=== PATIENT | female | born 1990 | race African-American/Black ===

== ENCOUNTER 2023-07-22 09:45 | Emergency (ER) | payer OTHER, SELFPAY ==
[2023-07-22 09:58] VITALS: BP 122/87; PULSE 92; RESP 18; TEMP 36.8; O2SAT 100; BMI 21.9
--- NOTE | 2023-07-22 10:12 | ED.FEMALEGU1 ---
HPI - Female Genitourinary General Chief complaint: Urogenital-Female Stated complaint: BLOOD IN URINE Time Seen by Provider: 07/22/23 09:52 Source: patient and friend Mode of arrival: walk-in Limitations: no limitations History of Present Illness HPI Narrative: 33-year-old female presents to the emergency department for vaginal bleeding. This has been going on for a few weeks. She was seen at another hospital a week ago and had extensive testing done including STD test and blood test all of which were negative. She is scheduled for a pelvic ultrasound today. No fever vomiting or diarrhea. Related Data Allergies Allergy/AdvReac Type Severity Reaction Status Date / Time No Known Drug Allergies Allergy Verified 07/22/23 09:58 Review of Systems ROS Narrative A ten point review of systems is negative except as noted above. Exam Narrative Exam Narrative: Nurses note and vital signs reviewed and patient is not hypoxic. General: The patient appears well and in no apparent distress. Patient is resting comfortably on cart. Skin: Warm, dry, no pallor noted. There is no rash noted. Head: Normocephalic, atraumatic Eye: Normal conjunctiva, no drainage Ears, Nose, Mouth, and Throat: oral mucosa is moist. Nares patent. Cardiovascular: Regular Rate and Rhythm Respiratory: Patient is in no distress, no accessory muscle use, lungs are clear to auscultation, no wheezing, rales or rhonchi Back: non-tender GI: Soft and nontender Musculoskeletal: No joint swelling Neurological: A&O, normal speech Psychiatric: Cooperative Constitutional Vital Signs, click to edit/add: Last Vital Signs Temp 98.2 F 07/22/23 09:58 Pulse 92 H 07/22/23 09:58 Resp 18 07/22/23 09:58 BP 122/87 07/22/23 09:58 Pulse Ox 100 07/22/23 09:58 O2 Del Method Room Air 07/22/23 09:58 Course Vital Signs Vital signs: Vital Signs Temperature 98.2 F 07/22/23 09:58 Pulse Rate 92 H 07/22/23 09:58 Respiratory Rate 18 07/22/23 09:58 Blood Pressure 122/87 07/22/23 09:58 Pulse Oximetry 100 07/22/23 09:58 Oxygen Delivery Method Room Air 07/22/23 09:58 Temperature 98.2 F 07/22/23 09:58 Pulse Rate 92 H 07/22/23 09:58 Respiratory Rate 18 07/22/23 09:58 Blood Pressure 122/87 07/22/23 09:58 Pulse Oximetry 100 07/22/23 09:58 Oxygen Delivery Method Room Air 07/22/23 09:58 MDM - Female Genitourinary MDM Narrative Medical decision making narrative: Her workup here is negative. 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 Treatment diagnosis and follow-up were discussed thoroughly. She is not . Differential Diagnosis Differential diagnosis: Likely urinary tract infection and other (Dysfunctional uterine bleeding, uterine fibroid , miscarriage, ectopic) Lab Data Attestation: I reviewed the patient's lab results. Labs: Lab Results 07/22/23 07/22/23 Range/Units 10:05 10:16 WBC 5.3 (4.0-11.0) 10^3/uL RBC 4.25 (4.20-5.40) 10^6/uL Hgb 13.5 (12.0-16.0) g/dL Hct 40.9 (36.0-48.0) % MCV 96.2 (81.0-99.0) fL MCH 31.8 (26.7-34.0) pg MCHC 33.0 (29.9-35.2) g/dL RDW 14.2 (11.0-15.0) % Plt Count 259 (150-450) 10^3/uL MPV 9.6 (9.5-13.5) fL Neut % (Auto) 45.5 (43.0-75.0) % Lymph % (Auto) 47.1 (20.5-60.0) % Ashley % (Auto) 4.0 (1.7-12.0) % Eos % (Auto) 2.8 (0.9-7.0) % Baso % (Auto) 0.4 (0.2-2.0) % Neut # (Auto) 2.4 (1.4-6.5) 10^3/uL Lymph # (Auto) 2.5 (1.2-3.8) 10^3/uL Ashley # (Auto) 0.2 L (0.3-0.8) 10^3/uL Eos # (Auto) 0.2 (0.0-0.7) 10^3/uL Baso # (Auto) 0.0 (0.0-0.1) 10^3/uL Abs Immat Gran (auto) 0.01 (0.00-0.03) 10^3/uL Imm/Tot Granulo (auto) 0.2 (0.0-0.5) % Sodium 139 (136-145) mmol/L Potassium 3.8 (3.5-5.1) mmol/L Chloride 104 (98-107) mmol/L Carbon Dioxide 21.0 (21.0-32.0) mmol/L Anion Gap 17.8 BUN 9.0 (7.0-18.0) mg/dL Creatinine 0.86 (0.55-1.02) mg/dL Est GFR ( Amer) >60 (>=60) Est GFR (Non-Af Amer) >60 (>=60) BUN/Creatinine Ratio 10.5 Glucose 82 (74-106) mg/dL Calcium 9.3 (8.5-10.1) mg/dL Serum HCG, Qual Negative (NEGATIVE) Urine Color Lt. yellow (YELLOW) Urine Clarity Clear (CLEAR) Urine pH 6.5 (5.0-9.0) Ur Specific [place] <=1.005 A (1.005-1.025) Urine Protein Negative (NEG/TRACE) mg/dL Urine Glucose (UA) Negative (NEGATIVE) mg/dL Urine Ketones Negative (NEGATIVE) mg/dL Urine Occult Blood Negative (NEGATIVE) Urine Nitrite Negative (NEGATIVE) Urine Bilirubin Negative (NEGATIVE) Urine Urobilinogen 0.2 (0.2-1.0) EU/dL Ur Leukocyte Esterase Negative (NEGATIVE) Urine RBC None seen (0-2) #/HPF Urine WBC None seen (NONE SEEN) #/HPF Ur Squamous Epith Cells Few A (NONE/RARE) #/LPF Urine Crystals Not Reportable Urine Bacteria None seen (NONE SEEN) #/HPF Urine Casts Not Reportable Urine Mucus None seen (NONE SEEN) Discharge Plan Discharge Stand Alone Forms: Portal Instructions Chief Complaint: Urogenital-Female Clinical Impression: Dysfunctional uterine bleeding Patient Disposition: Home, Self-Care Time of Disposition Decision: 11:14 Condition: Good Mode of Transportation: Private Vehicle Print Language: Occitan Instructions: Abnormal (Dysfunctional) Uterine Bleeding (ED) Additional Instructions: Keep your ultrasound appointment and follow-up with your boiler repairman. Referrals: Physician,Non-Staff, MD [Primary Care Provider] - 1 week
[2023-07-22 10:23] LABS: Bilirubin Urine NEGATIVE (NEGATIVE); Blood Urine NEGATIVE (NEGATIVE); Clarity Urine CLEAR (CLEAR); Color Urine LT. YELLOW (YELLOW); Glucose Urine UA NEGATIVE (NEGATIVE); Ketones Urine NEGATIVE (NEGATIVE); Leukocyte Esterase Urine NEGATIVE (NEGATIVE); Nitrite Urine NEGATIVE (NEGATIVE); Protein Urine NEGATIVE (NEG/TRACE); Specific Gravity Urine <=1.005 (1.005-1.025); Urobilinogen Urine 0.2 EU/dL (0.2-1.0); pH Urine 6.5 (5.0-9.0)
[2023-07-22 10:25] LABS: Basophils Percent Auto 0.4 % (0.2-2.0); Eosinophils Absolute Auto 0.2 10^3/uL (0.0-0.7); Eosinophils Percent Auto 2.8 % (0.9-7.0); Hematocrit 40.9 % (36.0-48.0); Hemoglobin 13.5 g/dL (12.0-16.0); Immature Granulocytes Abs Auto 0.01 10^3/uL (0.00-0.03); Immature Granulocytes Pct Auto 0.2 % (0.0-0.5); Lymphocytes Absolute Auto 2.5 10^3/uL (1.2-3.8); Lymphocytes Percent Auto 47.1 % (20.5-60.0); Mean Corpuscular Hemoglobin 31.8 pg (26.7-34.0); Mean Corpuscular Volume 96.2 fL (81.0-99.0); Mean Platelet Volume 9.6 fL (9.5-13.5); Monocytes Absolute Auto 0.2 10^3/uL (0.3-0.8); Neutrophils Absolute Auto 2.4 10^3/uL (1.4-6.5); Neutrophils Percent Auto 45.5 % (43.0-75.0); Platelet Count 259 10^3/uL (150-450); Red Blood Count 4.25 10^6/uL (4.20-5.40); Red Cell Distribution Width 14.2 % (11.0-15.0); White Blood Count 5.3 10^3/uL (4.0-11.0)
[2023-07-22 10:36] LABS: Bacteria Urine NONE SEEN #/HPF (NONE SEEN); RBC Urine NONE SEEN #/HPF (0-2); WBC Urine NONE SEEN #/HPF (NONE SEEN)
[2023-07-22 10:37] LABS: Mucus Urine NONE SEEN (NONE SEEN); Squamous Epithelial Cell Urine FEW #/LPF (NONE/RARE)
[2023-07-22 11:05] LABS: HCG Qualitative NEGATIVE (NEGATIVE)
[2023-07-22 11:08] LABS: Anion Gap 17.8; BUN Creatinine Ratio 10.5; Calcium 9.3 mg/dL (8.5-10.1); Chloride 104 mmol/L (98-107); Estimated GFR (African America >60 (>=60); Estimated GFR (Non-African Ame >60 (>=60); Glucose 82 mg/dL (74-106); Potassium 3.8 mmol/L (3.5-5.1); Sodium 139 mmol/L (136-145)
== END 2023-07-22 11:20 | disposition home or self-care (01) ==
PROVIDERS: Emergency Provider Emergency Medicine
DX: N93.8 Other specified abnormal uterine and vaginal bleeding (principal)
CPT/HCPCS: 36415; 80048; 81001; 84703; 85025; 99283